=== PATIENT | male | born 1950 | race American Indian/Alaskan Native ===

== ENCOUNTER 2021-08-16 08:26 | Day surgery (SDC) | payer MEDICARE ==
[~2021-08-16 08:26] MED LIST: SODIUM CHLORIDE 0.9% 500 ML IVPB IRRIGATION ONE
[2021-08-16] MEDS ORDERED: LACTATED RINGERS 1,000 ML IV SCH (09:00)
[2021-08-16] MEDS ORDERED: METOPROLOL TARTRATE 50 MG TAB PO NR (09:28)
--- NOTE | 2021-08-16 09:31 | Anesthesia Consultation ---
Anesthesia Consult and Med Hx Date of service: 08/16/21 - Airway Anesthetic Teeth Evaluation: Good ROM Head & Neck: Adequate Mental/Hyoid Distance: Adequate Mallampati Class: Class II Intubation Access Assessment: Probably Good - Pre-Operative Health Status ASA Pre-Surgery Classification: ASA3 Proposed Anesthetic Plan: General - Pulmonary Hx Smoking: No Hx Respiratory Symptoms: Yes (COVID >1 mo ago; symptoms resolved) - Cardiovascular System Hx Hypertension: Yes Hx Heart Attack/AMI: No (Reviewed 04/2021 TTE and myocardial perfusion study ) Hx Percutaneous Transluminal Coronary Angioplasty (PTCA): No Hx Cardia Arrhythmia: Yes (remote hx SVT) Hx Pacemaker: No Hx Internal Defibrillator: No Hx Valvular Heart Disease: Yes (s/p AVR; last dose Eliquis 3 days ago) - Central Nervous System CVA: No Hx Back Pain: Yes - Endocrine Hx Renal Disease: Yes (CKD 3) Hx Liver Disease: No Hx Insulin Dependent Diabetes: Yes Hx Thyroid Disease: No - Other Systems Hx Obesity: No - Additional Comments Anesthesia Medical History Comments: No hx anesthetic complications.
--- NOTE | 2021-08-16 09:32 | Anesthesia Day of Surgery ---
Anesthesia Day of Surgery - Day of Surgery Patient Examined: Yes Patient H&P Reviewed: Yes Patient is NPO: Yes Beta Blockers: Yes (metoprolol to be given in preop)
[2021-08-16] MEDS ORDERED: ceFAZolin/STERILE WATER 2 GM/20 ML SYRINGE IV NR (10:00)
[2021-08-16] MEDS ORDERED: SODIUM CHLORIDE 0.9% 500 ML 500 ML ONE (11:14)
[2021-08-16] MEDS ORDERED: propofoL 200 MG/20 ML VIAL IV ONE (11:22)
[2021-08-16] MEDS ORDERED: fentaNYL 100 MCG/2 ML INJ ONE (11:39)
[2021-08-16] MEDS ORDERED: ONDANSETRON 4 MG/2 ML INJ ONE (11:44)
[2021-08-16] MEDS ORDERED: GLYCOPYRROLATE 0.4 MG/2 ML INJ ONE (11:44)
[2021-08-16] MEDS ORDERED: dexAMETHasone 20 MG/5 ML VIAL ONE (11:44)
[2021-08-16] MEDS ORDERED: hydrALAZINE 20 MG/1 ML INJ ONE (12:41)
[2021-08-16] MEDS: hydrALAZINE 20 MG/1 ML INJ IV PRN ×3 (13:01→13:48)
--- NOTE | 2021-08-16 13:29 | Operative Report ---
DATE OF SURGERY: 08/16/2021 TIME: Approximately 11:00 a.m. PREOPERATIVE DIAGNOSIS: Benign prostatic hypertrophy with worsening lower urinary tract symptoms. POSTOPERATIVE DIAGNOSIS: Benign prostatic hypertrophy with worsening lower urinary tract symptoms. OPERATIVE PROCEDURE: Rezum procedure. ATTENDING: Mack Patterson M.D. DOCTOR OF NURSING PRACTICE: None. ANESTHESIA: General. ESTIMATED BLOOD LOSS: 10 mL. DRAINS: A 20-L[place] coude catheter. SPECIMENS: None. COMPLICATIONS: None. INDICATIONS FOR PROCEDURE: The patient is a 70-year-old man with worsening lower urinary tract symptoms because of BPH. He presents today for a Rezum procedure. DESCRIPTION OF PROCEDURE: After induction of suitable anesthesia and proper positioning and preparation in the dorsal lithotomy position, the Rezum device was inserted into the bladder under direct visualization. The scope was then backed up into the prostatic urethra and the prostatic urethra was measured. treatments to each side was calculated. The lower left prostatic lobe was treated first according to the specifications of the machine. The right lower prostate was then treated next. In a Z-like pattern, the upper left prostate lobe was then treated followed by the right upper prostatic lobe. All the treatments were done appropriately and there was minimal bleeding. There appeared to be good coverage of the prostatic adenoma. At this point, the procedure was complete. The patient tolerated it well. The Rezum device was removed and a Marcos catheter was placed for postoperative drainage. There was no hematuria. The patient was then awakened from anesthesia and transported to the recovery room in stable condition. He tolerated the procedure well. He will return to the office on Saturday for catheter removal. TID: [id number] RECEIPT: [id number] SHIRA/KEISHA/QUINTEN/MARIMAR
--- NOTE | 2021-08-16 15:30 | Post Anesthesia Evaluation ---
- Post Anesthesia Evaluation Patient Participated: Yes Airway Patent: Yes Stable Respiratory Function: Yes Nausea/Vomiting: No Temp > 96.8F: Yes Pain Manageable: Yes Adequeate Hydration: Yes Anesthesia Complications: No
[2021-08-16 15:38] VITALS: BP 165/78
== END 2021-08-16 15:15 | disposition home or self-care (01) ==
LOC: OR 08:26
PROVIDERS: ATTEND Urology
DX: N40.1 Benign prostatic hyperplasia with lower urinary tract symptoms (principal); I42.9 Cardiomyopathy, unspecified; E78.00 Pure hypercholesterolemia, unspecified; K21.9 Gastro-esophageal reflux disease without esophagitis; I12.9 Hypertensive chronic kidney disease with stage 1 through stage 4 chronic kidney disease, or unspecified chronic kidney disease; E11.22 Type 2 diabetes mellitus with diabetic chronic kidney disease; N18.30 Chronic kidney disease, stage 3 unspecified; F32.9 Major depressive disorder, single episode, unspecified; Z79.899 Other long term (current) drug therapy; Z79.84 Long term (current) use of oral hypoglycemic drugs; Z98.41 Cataract extraction status, right eye; Z95.2 Presence of prosthetic heart valve; Z98.890 Other specified postprocedural states; Z86.73 Personal history of transient ischemic attack (TIA), and cerebral infarction without residual deficits
CPT/HCPCS: 53854; 82962; J0360; J0690; J1100; J1815; J2405; J2704; J3010; J7040